=== PATIENT | male | born 1970 | race Caucasian/White ===

== ENCOUNTER 2017-03-02 14:32 | Inpatient (IN) | payer BC ==
[2017-03-02] MEDS ORDERED: NS 1,000 ML IV ONE (15:08)
[2017-03-02] MEDS ORDERED: ONDANSETRON 4 MG/2 ML VIAL IVP ONE (15:08)
[2017-03-02] MEDS ORDERED: HYDROmorphONE/DILAUDID 1 MG/ML SYR IVP ONE (15:08)
--- NOTE | 2017-03-02 15:11 | UCPHY ---
H & P Patient Type: New Chief Complaint Nursing Narrative: Pt. states vomiting with fever Monday noc last emesis Monday afternoon,diarrhea Monday am, and llq abd pain, also c/o garibay but resolving Time Seen by Provider: 03/02/17 14:57 HPI/ROS: CHIEF COMPLAINT: ABDOMINAL PAIN HISTORY OF PRESENT ILLNESS: Patient is a 46-year-old otherwise healthy man who comes to the Urgent Care complaining of left lower quadrant abdominal pain. He states that on Monday he began having some discomfort. Monday evening he vomited and had a fever of 101. Monday he had 1 or 2 episodes of diarrhea. The nausea, vomiting and diarrhea subsided but he continues to have mild to moderate left lower quadrant pain. It hurts him when he stepped down from the step and gokul his abdomen. He no longer has a fever. He states that he had something similar 2 years ago and his PCP told him to stay more hydrated. No testicular or back pain. He denies having any blood in his stool or vomit. REVIEW OF SYSTEMS: Constitutional: denies: chills, fever, recent illness, recent injury EENTM: denies: blurred vision, double vision, nose congestion Respiratory: denies: cough, shortness of breath Cardiac: denies: chest pain, irregular heart rate, lightheadedness, palpitations Gastrointestinal/Abdominal: See HPI Genitourinary: denies: dysuria, frequency, hematuria, pain Musculoskeletal: denies: joint pain, muscle pain Skin: denies: lesions, rash, jaundice, bruising Neurological: denies: headache, numbness, paresthesia, tingling, dizziness, weakness Hematologic/Lymphatic: denies: blood clots, easy bleeding, easy bruising Immunologic/allergic: denies: HIV/AIDS, transplant EXAM: GENERAL: Well-appearing, well-nourished and in no acute distress. HEAD: Atraumatic, normocephalic. EYES: Pupils equal round and reactive to light, extraocular movements intact, sclera anicteric, conjunctiva are normal. ENT: TMs normal, nares patent, oropharynx clear without exudates. Moist mucous membranes. NECK: Normal range of motion, supple without lymphadenopathy or JVD. LUNGS: Breath sounds clear to auscultation bilaterally and equal. No wheezes rales or rhonchi. HEART: Regular rate and rhythm without murmurs, rubs or gallops. ABDOMEN: Soft, nontender, normoactive bowel sounds. No guarding, no rebound. No masses appreciated. BACK: No CVA tenderness, no spinal tenderness, step-offs or deformities EXTREMITIES: Normal range of motion, no pitting or edema. No clubbing or cyanosis. NEUROLOGICAL: Cranial nerves II through XII grossly intact. Normal speech, normal gait. 5/5 strength, normal movement in all extremities, normal sensation PSYCH: Normal mood, normal affect. SKIN: Warm, dry, normal turgor, no visible rashes or lesions. Source: Patient Exam Limitations: No limitations - Medical/Surgical History Hx Asthma: No Hx Chronic Respiratory Disease: No Hx Diabetes: No Hx Cardiac Disease: No Hx Renal Disease: No Hx Cirrhosis: No Hx Alcoholism: No Hx HIV/AIDS: No Hx Splenectomy or Spleen Trauma: No Other PMH: Med hx-none. Surg-none - Family History Significant Family History: No pertinent family hx - Social History Smoking Status: Never smoked Alcohol Use: None Drug Use: None Constitutional: Initial Vital Signs Temperature (C) 37.1 C 03/02/17 14:46 Heart Rate 81 03/02/17 14:46 Respiratory Rate 16 03/02/17 14:46 Blood Pressure 131/88 H 03/02/17 14:46 O2 Sat (%) 97 03/02/17 14:46 O2 Delivery Mode Room Air Allergies/Adverse Reactions: No Known Allergies Allergy (Verified 03/02/17 14:45) Home Medications: Medication Instructions Recorded NK [No Known Home Meds] 03/02/17 Medical Decision Making - Diagnostics Imaging: Imaging Impressions Abdomen CT 03/02/17 15:08 Impression: Left descending colon localized perforation: diverticulitis versus colonic perforation of other etiology. Currently there is no colon obstruction. Results discussed with Dr. Constantino at 4:29 PM General information for patients regarding this examination can be found at [email or web address]. If you have questions or comments about this report, please contact me at (hospital) or [phone] (cell). PERSONALLY REVIEWED BY ME ED Course/Re-evaluation: Patient has pain in his left lower quadrant but no tenderness on exam. We will obtain lab work and CT scan. 4:50 p.m. we discussed the CT results. Start the patient on antibiotics and have paged surgery. 5:00 p.m. I spoke with Dr. Johan Jane who agrees with antibiotics and admission and will admit. Differential Diagnosis: Partial list of the Differential diagnosis considered include but were not limited to; diverticulitis, perforation, abscess and although unlikely based on the history and physical exam, I also considered constipation, gastritis, kidney stone, urinary tract infection. - Data Points Laboratory Results: Laboratory Results 03/02/17 15:05 03/02/17 15:05 03/02/17 03/02/17 03/02/17 15:25 15:05 15:05 WBC 14.61 10^3/uL H 10^3/uL (3.80-9.50) RBC 5.71 10^6/uL 10^6/uL (4.40-6.38) Hgb 17.3 g/dL g/dL (13.7-17.5) Hct 49.2 % % (40.0-51.0) MCV 86.2 fL fL (81.5-99.8) MCH 30.3 pg pg (27.9-34.1) MCHC 35.2 g/dL g/dL (32.4-36.7) RDW 12.7 % % (11.5-15.2) Plt Count 292 10^3/uL 10^3/uL (150-400) MPV 9.8 fL fL (8.7-11.7) Neut % (Auto) 78.1 % H % (39.3-74.2) Lymph % (Auto) 13.0 % L % (15.0-45.0) [place] % (Auto) 7.3 % % (4.5-13.0) Eos % (Auto) 0.8 % % (0.6-7.6) Baso % (Auto) 0.3 % % (0.3-1.7) Nucleat RBC Rel Count 0.0 % % (0.0-0.2) Absolute Neuts (auto) 11.43 10^3/uL H 10^3/uL (1.70-6.50) Absolute Lymphs (auto) 1.90 10^3/uL 10^3/uL (1.00-3.00) Absolute Monos (auto) 1.06 10^3/uL H 10^3/uL (0.30-0.80) Absolute Eos (auto) 0.11 10^3/uL 10^3/uL (0.03-0.40) Absolute Basos (auto) 0.04 10^3/uL 10^3/uL (0.02-0.10) Absolute Nucleated RBC 0.00 10^3/uL 10^3/uL (0-0.01) Immature Gran % 0.5 % % (0.0-1.1) Immature Gran # 0.07 10^3/uL 10^3/uL (0.00-0.10) Sodium 139 mEq/L mEq/L (134-144) Potassium 3.8 mEq/L mEq/L (3.5-5.2) Chloride 95 mEq/L L mEq/L (97-110) Carbon Dioxide 24 mEq/l mEq/l (22-31) Anion Gap 20 mEq/L H mEq/L (8-16) BUN 8 mg/dL mg/dL (7-23) Creatinine 0.9 mg/dL mg/dL (0.7-1.3) Estimated GFR > 60 Glucose 90 mg/dL mg/dL (70-100) Calcium 9.7 mg/dL mg/dL (8.5-10.4) Total Bilirubin 0.8 mg/dL mg/dL (0.1-1.4) Conjugated Bilirubin 0.2 mg/dL mg/dL (0.0-0.5) Unconjugated Bilirubin 0.6 mg/dL mg/dL (0.0-1.1) AST 17 IU/L IU/L (17-59) ALT 29 IU/L IU/L (21-72) Alkaline Phosphatase 103 IU/L IU/L (38-126) Total Protein 8.4 g/dL H g/dL (6.3-8.2) Albumin 4.6 g/dL g/dL (3.5-5.0) Lipase 52.0 IU/L IU/L (23-300) Urine Color YELLOW Urine Appearance CLEAR Urine pH 6.0 (5.0-7.5) Ur Specific [place] 1.020 (1.002-1.030) Urine Protein NEGATIVE (NEGATIVE) Urine Ketones TRACE H (NEGATIVE) Urine Blood 1+ H (NEGATIVE) Urine Nitrate NEGATIVE (NEGATIVE) Urine Bilirubin NEGATIVE (NEGATIVE) Urine Urobilinogen 0.2 EU EU (0.2-1.0) Ur Leukocyte Esterase NEGATIVE (NEGATIVE) Urine RBC 0-1 /hpf /hpf (0-3) Urine WBC 3-5 /hpf H /hpf (0-3) Ur Epithelial Cells NONE SEEN /lpf /lpf (NONE-1+) Urine Bacteria 1+ /hpf H /hpf (NONE SEEN) Urine Mucus 2+ /lpf H /lpf (NONE-1+) Ur Culture Indicated? NOT INDICATED (NI) Urine Glucose NEGATIVE (NEGATIVE) Medications Given: Discontinued Medications Hydromorphone HCl (Dilaudid) 0.5 mg IVP EDNOW ONE Stop: 03/02/17 15:09 Last Admin: 03/02/17 15:46 Dose: Not Given Sodium Chloride (Ns) 1,000 mls @ 0 mls/hr IV ONCE ONE PRN Reason: Wide Open Stop: 03/02/17 15:09 Last Admin: 03/02/17 15:15 Dose: 1,000 mls Ertapenem 1 gm/ Sodium (Chloride) 100 mls @ 200 mls/hr IV EDNOW ONE PRN Reason: Protocol Stop: 03/02/17 17:09 Last Admin: 03/02/17 15:45 Dose: 100 mls Ondansetron HCl (Zofran) 4 mg IVP EDNOW ONE Stop: 03/02/17 15:09 Last Admin: 03/02/17 15:20 Dose: 4 mg Departure - Departure Disposition: [facility] Clinical Impression: Perforation of colon Condition: Fair - PQRS PQRS Measurement: Not applicable
[2017-03-02 15:27] LABS: % IMMATURE GRANULYOCYTES 0.5 % (0.0-1.1); ABSOLUTE IMMATURE GRANULOCYTES 0.07 10^3/uL (0.00-0.10); ADD DIFF? NO; ADD MORPH? NO; ADD SCAN? NO; ATYPICAL LYMPHOCYTE FLAG 0 (0-99); FRAGMENT RBC FLAG 0 (0-99); HEMATOCRIT 49.2 % (40.0-51.0); HEMOGLOBIN 17.3 g/dL (13.7-17.5); LEFT SHIFT FLG 10 (0-99); LIPEMIA HEMOLYSIS FLAG 90 (0-99); MEAN CELL HEMOGLOBIN 30.3 pg (27.9-34.1); MEAN CELL HEMOGLOBIN CONCENTR. 35.2 g/dL (32.4-36.7); MEAN CELL VOLUME 86.2 fL (81.5-99.8); MEAN PLATELET VOLUME 9.8 fL (8.7-11.7); PLATELET CLUMPS FLAG 10 (0-99); PLATELET COUNT 292 10^3/uL (150-400); RED BLOOD CELL COUNT 5.71 10^6/uL (4.40-6.38); RED CELL DISTRIBUTION WIDTH 12.7 % (11.5-15.2)
[2017-03-02] MEDS ORDERED: IOPAMIDOL (ISOVUE-300) 100 ML BTL IV ONE (15:30)
[2017-03-02 15:32] LABS: COLOR YELLOW; LEUKOCYTE ESTERASE,URINE NEGATIVE (NEGATIVE); NITRITE,URINE NEGATIVE (NEGATIVE)
[2017-03-02 15:41] LABS: ALANINE AMINOTRANSFERASE 29 IU/L (21-72); ALBUMIN 4.6 g/dL (3.5-5.0); ALKALINE PHOSPHATASE 103 IU/L (38-126); ANION GAP 20 mEq/L (8-16); ASPARTATE AMINOTRANSFERASE 17 IU/L (17-59); BILIRUBIN,TOTAL 0.8 mg/dL (0.1-1.4); BILIRUBIN-CONJUGATED 0.2 mg/dL (0.0-0.5); BILIRUBIN-UNCONJUGATED 0.6 mg/dL (0.0-1.1); CALCIUM 9.7 mg/dL (8.5-10.4); CARBON DIOXIDE 24 mEq/l (22-31); CHLORIDE 95 mEq/L (97-110); CREATININE 0.9 mg/dL (0.7-1.3); GLOMERULAR FILTRATION RATE > 60; GLUCOSE 90 mg/dL (70-100); POTASSIUM 3.8 mEq/L (3.5-5.2); SODIUM 139 mEq/L (134-144); TOTAL PROTEIN 8.4 g/dL (6.3-8.2)
[2017-03-02 15:49] LABS: BACTERIA 1+ /hpf (NONE SEEN); MUCUS 2+ /lpf (NONE-1+); RBC,URINE 0-1 /hpf (0-3)
[2017-03-02] MEDS ORDERED: ERTAPENEM 1 GM VIAL ONE (16:40)
[2017-03-02] MEDS ORDERED: ERTAPENEM 1 GM in NS 100 ML IV ONE (16:40)
[2017-03-02] MEDS ORDERED: NS 100 ML BAG (MINI-BAG) IV ONE (16:41)
--- NOTE | 2017-03-02 20:20 | SOAPPROG ---
SOAP Progress Note Assessment/Plan: Assessment: 46 MALE WITH CONTAINED PERFORATION DESCENDING COLON UNCLEAR ETIOLOGY/ SIMILAR EPISODE 2 YRS AGO SOME CONSTIPATION RISKS AND OPTIONS FULLY DISCUSSED Plan:ADMIT FOR IV ABX/ IVS/ POSSIBLE COLECTOMY 03/02/17 20:18 Objective: Vital Signs Temp Pulse Resp BP Pulse Ox 36.8 C 69 18 107/70 97 03/02/17 19:13 03/02/17 19:13 03/02/17 19:13 03/02/17 19:13 03/02/17 19:13 03/01/17 03/02/17 03/03/17 05:59 05:59 05:59 Intake Total 1100 Balance 1100 ICD10 Worksheet Patient Problems: Problems Problem Status Onset Perforation of colon Acute
--- NOTE | 2017-03-02 21:16 | GHP ---
[f rep st] PREOP HISTORY AND PHYSICAL DATE OF ADMISSION: 03/02/2017 HISTORY OF PRESENT ILLNESS: A 46-year-old male, who has had abdominal pain for 4-5 days. He was ad mitted at this time with an area of colonic perforation in the descending colon, possibly secondary to diverticulitis. It is a contained perforation. He is relatively comfortable and afebrile, but w ith free air in the pericolonic tissue. He did have a fever earlier in the week. He has had some ch ronic problems with constipation. He had a similar episode 2 years ago, which resolved. PAST MEDICAL HISTORY: Includes no surgeries, hospitalizations or major medical problems. ALLERGIES: None. MEDICATIONS: None. REVIEW OF SYSTEMS: Reveals negative complete 10-point review of symptoms. PHYSICAL EXAMINATION: VITAL SIGNS: Reveal him presently to be afebrile. Blood pressure 130/84. HEAD AND NECK: Negative for icterus, adenopathy or oral lesions. CHEST: Clear. CARDIAC: Regular rhythm. ABDOMEN: Soft, flat. He is tender in the left lower quadrant just adjacent to his superi or iliac crest. GENITALIA: Normal. EXTREMITIES: Benign with full pulses. IMPRESSION: Localized perforation of diverticulitis. Cannot rule out malignancy. PLAN: IV antibiotics, rehydration. Consider colectomy. /[id number]/MODL
[2017-03-02] MEDS: D5W 1/2 NS W/ 20 KCl/L 1,000 ML IV SCH (21:53)
[2017-03-02] MEDS ORDERED: ACETAMINOPHEN 325 MG TAB PO PRN (23:25)
[2017-03-03] MEDS: D5W 1/2 NS W/ 20 KCl/L 1,000 ML IV SCH ×3 (04:35→21:22)
[2017-03-03 05:07] LABS: % IMMATURE GRANULYOCYTES 0.5 % (0.0-1.1); ABSOLUTE IMMATURE GRANULOCYTES 0.05 10^3/uL (0.00-0.10); ADD DIFF? NO; ADD MORPH? NO; ADD SCAN? NO; ATYPICAL LYMPHOCYTE FLAG 10 (0-99); FRAGMENT RBC FLAG 0 (0-99); HEMATOCRIT 43.3 % (40.0-51.0); HEMOGLOBIN 14.9 g/dL (13.7-17.5); LEFT SHIFT FLG 10 (0-99); LIPEMIA HEMOLYSIS FLAG 90 (0-99); MEAN CELL HEMOGLOBIN CONCENTR. 34.4 g/dL (32.4-36.7); MEAN CELL VOLUME 87.1 fL (81.5-99.8); PLATELET CLUMPS FLAG 10 (0-99); PLATELET COUNT 265 10^3/uL (150-400); RED BLOOD CELL COUNT 4.97 10^6/uL (4.40-6.38); RED CELL DISTRIBUTION WIDTH 12.7 % (11.5-15.2)
[2017-03-03] MEDS: ERTAPENEM 1 GM in NS 100 ML IV SCH (10:07)
--- NOTE | 2017-03-03 10:15 | SOAPPROG ---
SOAP Progress Note Assessment/Plan: Assessment: 46 MALE WITH CONTAINED PERFORATION DESCENDING COLON UNCLEAR ETIOLOGY/ SIMILAR EPISODE 2 YRS AGO SOME CONSTIPATION RISKS AND OPTIONS FULLY DISCUSSED Plan:ADMIT FOR IV ABX/ IVS/ POSSIBLE COLECTOMY 03/02/17 20:18 03/03/17 10:14 vs stable/ still photographer llq but improved/ afebrile/ risks and options fully discussed and he wishes to proceed with surgery Objective: Vital Signs Temp Pulse Resp BP Pulse Ox 36.6 C 54 L 18 110/77 97 03/03/17 08:05 03/03/17 08:05 03/03/17 08:05 03/03/17 08:05 03/03/17 08:05 Laboratory Results 03/03/17 04:23 ICD10 Worksheet Patient Problems: Problems Problem Status Onset Perforation of colon Acute
[2017-03-03] MEDS ORDERED: BUPIVACAINE 0.5% 30 ML SDV ONE (11:51)
[2017-03-03] MEDS ORDERED: HEPARIN 1000 UNIT/1 ML MDV ONE (11:52)
[2017-03-03] MEDS ORDERED: ceFAZolin 1 GM/5 ML SYR ONE (11:52)
[2017-03-03] MEDS ORDERED: fentaNYL 100 MCG/2 ML INJ ONE ×3 (14:29→20:00)
[2017-03-03] MEDS ORDERED: PROPOFOL 200 MG/20 ML VIAL ONE (14:29)
[2017-03-03] MEDS ORDERED: ROCURONIUM 50 MG/5 ML VIAL ONE ×3 (14:31→18:26)
[2017-03-03] MEDS ORDERED: DEXAMETHASONE 4 MG/ML VIAL ONE ×2 (14:32)
[2017-03-03] MEDS ORDERED: SCOPOLAMINE HYDROBROMIDE 1.5 MG PATCH TD ONE (16:22)
[2017-03-03] MEDS ORDERED: LIDOCAINE 2% 5 ML SDV ONE (17:05)
[2017-03-03] MEDS ORDERED: PROPOFOL/EMULSION 500 MG/50 ML BOTTLE IV ONE (17:05)
[2017-03-03] MEDS ORDERED: GLYCOPYRROLATE 0.2 MG/1 ML VIAL ONE ×2 (19:23→19:24)
--- NOTE | 2017-03-03 19:43 | POSTOPPROG ---
Post Op Note Date of Operation: 03/03/17 Surgeon: Johan Jane Oliver Filter Operator: Nayana Ospina MD, Gopal Benavides MS, AMELIA Ruiz MS Anesthesiologist: Jeffrey Garcia MD Anesthesia: GET(General Endotracheal) Pre-op Diagnosis: perforated colon Post-op Diagnosis: same Indication: epigastric pain Procedure: laparoscopic attempted, laparotomy with descending colon resection Findings: diverticulitis, perforated ulcer Inf/Abcess present in the surg proc area at time of surgery?: Yes Depth: Organ Space EBL: 50-100 Complications: none Drains: Hermes Sousa Specimen(s): descending colon to path
[2017-03-03] MEDS ORDERED: ONDANSETRON 4 MG/2 ML VIAL IVP PRN (19:48)
[2017-03-03] MEDS ORDERED: KETOROLAC 30 MG/1 ML SDV ONE (20:03)
[2017-03-03] MEDS ORDERED: HYDROmorphONE/DILAUDID 6 MG/30 ML PCA IV PRN (20:15)
[2017-03-03] MEDS ORDERED: NALOXONE HCL 0.4 MG/ML INJ IVP PRN (20:15)
[2017-03-03] MEDS ORDERED: HYDROmorphONE/DILAUDID 1 MG/ML SYR IVP PRN (21:00)
--- NOTE | 2017-03-03 21:09 | GOP ---
[f rep st] OPERATIVE REPORT DATE OF OPERATION: 03/03/2017 SURGEON: Johan Jane MD CO FOUNDER AND CHAIRMAN: Salvador Ospina MD. ANESTHESIOLOGIST: Mallory Mckinnon MD PREOPERATIVE DIAGNOSIS: Diverticular perforation. POSTOPERATIVE DIAGNOSIS: Diverticular perforation. PROCEDURE PERFORMED: 1. Laparoscopy, laparotomy with left partial colectomy. 2. Splenic flexure mobilization and drainage of diverticular abscess. FINDINGS: The patient was found to have a finite section of the diverticular inflammation with a lo calized abscess in the pericolonic area. DESCRIPTION OF PROCEDURE: The patient was taken to the operating room where he received satisfactor y general endotracheal anesthesia by Dr. Mckinnon. He was placed in supine position in low stirrups, prepped and draped in the usual sterile fashion. A periumbilical incision was made. A Veress need le inserted. Pneumoperitoneum was established. Trocar was introduced. Laparoscope introduced. Go od visualization was obtained. Two other trocars were placed under direct vision. The left colon w as mobilized and the descending colon and splenic flexure were mobilized along the lateral line of T oldt and around the splenic flexure. The sigmoid colon was also mobilized with the Harmonic Scalpel and then the area of inflammation was freed up from the abdominal wall. An abscess pocket was enco untered. This was suctioned clear and then irrigated clear. At that point, a midline abdominal inc ision was made and carried through to the linea alba. The colon was further mobilized and brought u p into the incision. It was divided distally with a ELLIE stapler below the level of diverticula and approximated the distal transverse colon with a ELLIE stapler. The specimen was removed and sent to P athology. The wound was copiously irrigated. The transverse colon was further mobilized and rodri t down into the pelvis where an end-to-side anastomosis was made in a 2-layer fashion using 3-0 silk interrupted sutures for the anterior and posterior layers, a running inner layer of 3-0 Vicryl, cre ating a good 2 fingerbreadth anastomosis. The wound again was irrigated. A 15 mm RAFAEL drain was brou ght out through a separate stab incision in the left lower quadrant and placed along the left gutter where the abscess was. The linea alba was then closed with a running #1 PDS suture. The skin was closed with a running 2-0 Monoderm Quill suture. The abdominal wound had been irrigated and an Carlo is wound protector was used for the procedure and then gloves and towels were changed for closure. He tolerated the procedure well, was taken to the recovery room in good condition. Blood loss was l ess than 10 cc. No complications. /[id number]/MODL
[2017-03-03] MEDS: KETOROLAC 15 MG/1 ML SDV IVP SCH (23:28)
[2017-03-04] MEDS: D5W 1/2 NS W/ 20 KCl/L 1,000 ML IV SCH ×3 (00:08→19:34)
[2017-03-04] MEDS: KETOROLAC 15 MG/1 ML SDV IVP SCH ×3 (05:18→18:14)
[2017-03-04 05:35] LABS: HEMATOCRIT 40.8 % (40.0-51.0); HEMOGLOBIN 14.1 g/dL (13.7-17.5)
[2017-03-04 05:54] LABS: ANION GAP 8 mEq/L (8-16); CALCIUM 8.8 mg/dL (8.5-10.4); CARBON DIOXIDE 24 mEq/l (22-31); CHLORIDE 103 mEq/L (97-110); CREATININE 0.7 mg/dL (0.7-1.3); GLOMERULAR FILTRATION RATE > 60; GLUCOSE 122 mg/dL (70-100); POTASSIUM 4.6 mEq/L (3.5-5.2); SODIUM 135 mEq/L (134-144)
[2017-03-04] MEDS: ERTAPENEM 1 GM in NS 100 ML IV SCH (10:30)
--- NOTE | 2017-03-04 10:55 | SOAPPROG ---
SOAP Progress Note Assessment/Plan: Assessment: s/p sigmoid colectomy ambulate cough/deep breath/IS sips and chips S: No nausea. No flatus O: Incision cdi BS hypoactive lungs ctab RRR Plan: 03/04/17 10:53 Objective: Vital Signs Temp Pulse Resp BP Pulse Ox 37.1 C 63 16 102/64 95 03/04/17 08:00 03/04/17 08:00 03/04/17 08:00 03/04/17 08:00 03/04/17 08:00 Laboratory Results 03/04/17 04:18 03/04/17 04:18 03/03/17 03/04/17 03/05/17 05:59 05:59 05:59 Intake Total 2300 Output Total 0 Balance 250 ICD10 Worksheet Patient Problems: Problems Problem Status Onset Perforation of colon Acute
[2017-03-04] MEDS: OXYCODONE/APAP 5/325 TAB PO PRN (19:26)
[2017-03-05] MEDS: KETOROLAC 15 MG/1 ML SDV IVP SCH ×5 (00:07→23:33)
[2017-03-05] MEDS: OXYCODONE/APAP 5/325 TAB PO PRN ×4 (00:12→14:11)
[2017-03-05] MEDS: D5W 1/2 NS W/ 20 KCl/L 1,000 ML IV SCH (03:32)
[2017-03-05] MEDS ORDERED: BISACODYL 10 MG SUPP PR PRN (08:06)
[2017-03-05] MEDS ORDERED: MAGNESIUM HYDROXIDE 30 ML UDCUP PO PRN (08:06)
[2017-03-05] MEDS ORDERED: POLYETHYLENE GLYCOL 3350 17 GM PKT PO PRN (08:06)
[2017-03-05] MEDS ORDERED: LACTULOSE 20 GM/30 ML UDCUP PO PRN (08:06)
--- NOTE | 2017-03-05 08:06 | SOAPPROG ---
SOAP Progress Note Assessment/Plan: Assessment: s/p sigmoid colectomy ambulate cough/deep breath/IS regular diet Likely home tomorrow S: Pain controlled. passing flatus O: Incision cdi BS present lungs ctab RRR Plan: 03/04/17 10:53 03/05/17 08:05 Objective: Vital Signs Temp Pulse Resp BP Pulse Ox 36.8 C 61 16 94/53 L 93 03/05/17 04:00 03/05/17 04:00 03/05/17 04:00 03/05/17 04:00 03/05/17 04:00 Laboratory Results 03/04/17 04:18 03/04/17 04:18 03/04/17 03/05/17 03/06/17 05:59 05:59 05:59 Intake Total 2300 400 Output Total 2050 1610 Balance 250 -1210 ICD10 Worksheet Patient Problems: Problems Problem Status Onset Perforation of colon Acute
[2017-03-05] MEDS: ERTAPENEM 1 GM in NS 100 ML IV SCH (09:30)
[2017-03-05] MEDS: SENNOSIDES/DOCUSATE SODIUM TAB PO SCH ×2 (11:32→21:37)
[2017-03-06] MEDS: KETOROLAC 15 MG/1 ML SDV IVP SCH (05:34)
[2017-03-06 07:20] VITALS: BP 117/73; PULSE 70; RESP 16; TEMP 98.2; O2SAT 95
[2017-03-06] MEDS: ERTAPENEM 1 GM in NS 100 ML IV SCH (08:41)
[2017-03-06] MEDS: SENNOSIDES/DOCUSATE SODIUM TAB PO SCH (08:43)
[2017-03-06] MEDS ORDERED: ONDANSETRON DISINTEGRATING 4 MG TAB PO ONE (11:30)
--- NOTE | 2017-03-08 21:35 | GDS ---
[f rep st] DISCHARGE SUMMARY REASON FOR ADMISSION: Diverticulitis. OTHER PERTINENT DIAGNOSES: Laparoscopic, laparotomy with left partial colectomy, drainage of divert icular abscess. HOSPITAL COURSE: The patient is a 46-year-old male, otherwise healthy, who came to the emergency ro with abdominal pain on 03/02/2017. CT scan demonstrated diverticulitis with microperforation. T he patient went to the operating room with Dr. Jane with the above-mentioned surgery. He tolerated it well. His hospital course was unremarkable, and patient regained bowel function fairly quickly. He was se nt home with pain medicine, Reubens, #30, and Augmentin 875 mg twice daily for 10 days. Pathology from the surgery demonstrated diverticulitis. There were 2 sections of colon removed, the first 8 cm in length, and a second 14 cm in length. Scattered diverticula noted. FOLLOWUP: Patient was instructed to follow up in our office in a few days' time for removal of Ford son-Sousa drain. /[id number]/MODL
== END 2017-03-06 13:06 | disposition home or self-care (01) | DRG 330 ==
LOC: CED 14:32 → CEDHOLD 17:04 → F3E 18:54 → OBSVTOIN 21:11
PROVIDERS: ADMIT Surgery; ATTEND Surgery
PROC: 0DBL0ZZ Excision of Transverse Colon, Open Approach (ICD-10-PCS; principal; 2017-03-03 20:15)
PROC: 0D9N4ZZ Drainage of Sigmoid Colon, Percutaneous Endoscopic Approach (ICD-10-PCS; principal; 2017-03-03 20:15)
DX: K57.20 Diverticulitis of large intestine with perforation and abscess without bleeding (principal)
CPT/HCPCS: 74177-PO; 80053-PO; 81003-PO; 81015-PO; 82248-PO; 83690-PO; 85025-PO; 96361-PO; 96365-PO; 96375-PO; 99205-PO; G0463-PO; J1100; J1170; J1335; J1885; J2405; J2704; J3010; Q9967

== ENCOUNTER 2017-03-07 21:19 | Emergency (ER) | payer BC ==
[2017-03-07 21:29] VITALS: RESP 16; O2SAT 95
[2017-03-07] MEDS ORDERED: ONDANSETRON 4 MG/2 ML VIAL IVP ONE (21:46)
[2017-03-07] MEDS ORDERED: NS 1,000 ML IV ONE (21:46)
--- NOTE | 2017-03-07 21:46 | EDPHY ---
H & P Stated Complaint: nausea HPI/ROS: HPI CHIEF COMPLAINT: Nausea, recent colon surgery HISTORY OF PRESENT ILLNESS: This patient 46-year-old male otherwise healthy no significant medical history however just had colon resection due to acute diverticulitis with perforation by Dr. Jane. He had surgery on 03/03, state multiple days in the hospital discharge yesterday. Since going home he has had nausea. No fever. Denies abdominal pain. Having diarrheal bowel movements. He is on Augmentin. He denies chest pain or shortness of breath. His main complaint tonight is ongoing nausea. He also tells me that he had some frothy urine. Denies dysuria. Denies discoloration of his urine or fecal metal in his urine. Past Medical History: Acute diverticulitis Past Surgical History: Recent colon surgery Social History: Denies daily use drugs alcohol tobacco products Family History: Noncontributory ROS REVIEW OF SYSTEMS: A comprehensive 10 point review of systems is otherwise negative aside from elements mentioned in the history of present illness. Exam Constitutional appears well nontoxic, triage nursing summary reviewed, vital signs reviewed, awake/alert. Eyes normal conjunctivae and sclera, EOMI, PERRLA. HENT normal inspection, atraumatic, moist mucus membranes, no epistaxis, neck supple/ no meningismus, no raccoon eyes. Respiratory clear to auscultation bilaterally, normal breath sounds, no respiratory distress, no wheezing. Cardiovascular rate normal, regular rhythm, no murmur, no edema, distal pulses normal. Gastrointestinal mild tender palpation around the incision vertical midline, and RAFAEL drain, otherwise no peritoneal signs, no rebound, no guarding, normal bowel sounds, no distension, no pulsatile mass. Genitourinary no CVA tenderness. Musculoskeletal no midline vertebral tenderness, full range of motion, no calf swelling, no tenderness of extremities, no meningismus, good pulses, neurovascularly intact. Skin midline abdominal incision Steri-Strips in place, clean dry, intact, left lower quadrant abdominal drain, no signs of infection pink, warm, & dry, no rash , skin atraumatic. Neurologic awake, alert and oriented x 3, AAOx3, moves all 4 extremities equally, motor intact, sensory intact, CN II-XII intact, normal cerebellar, normal vision, normal speech. Psychiatric normal mood/affect. Heme/Lymph/Immune no lymphadenopathy. Differential Diagnosis: Includes but is not limited to in a particular order electrolyte disturbance, dehydration, nausea from recent surgery, doubt intra- abdominal abscess, UTI, Medical Decision Making: Plan for patient IV establishment blood work, check urinalysis IV hydration IV Zofran for nausea. Re-evaluation. Re-evaluation: Source: Patient - Personal History Current Tetanus/Diphtheria Vaccine: Yes Current Tetanus Diphtheria and Acellular Pertussis (TDAP): Yes - Medical/Surgical History Hx Asthma: No Hx Chronic Respiratory Disease: No Hx Diabetes: No Hx Cardiac Disease: No Hx Renal Disease: No Hx Cirrhosis: No Hx Alcoholism: No Hx HIV/AIDS: No Hx Splenectomy or Spleen Trauma: No Other PMH: Med hx-none. Surg-colon resection 02/2017 - Social History Smoking Status: Never smoked Constitutional: Initial Vital Signs Temperature (C) 36.6 C 03/07/17 21:25 Heart Rate 79 03/07/17 21:25 Respiratory Rate 16 03/07/17 21:25 Blood Pressure 146/99 H 03/07/17 21:25 O2 Sat (%) 95 03/07/17 21:25 O2 Delivery Mode Room Air Allergies/Adverse Reactions: No Known Allergies Allergy (Verified 03/07/17 21:25) Home Medications: Medication Instructions Recorded Acetaminophen [Tylenol 325mg (*)] 650 mg PO Q4 PRN #0 tab 03/06/17 Amoxicillin/Clavulanate Pot 875 mg PO BID #20 tab 03/06/17 [Augmentin 875 MG TAB (*)] Ondansetron HCl [Zofran] 4 mg PO Q4-6PRN PRN #10 tablet 03/07/17 Medical Decision Making - Data Points Laboratory Results: Laboratory Results 03/07/17 22:15 03/07/17 22:15 03/07/17 03/07/17 03/07/17 22:15 22:15 22:15 WBC 9.87 10^3/uL H 10^3/uL (3.80-9.50) RBC 5.11 10^6/uL 10^6/uL (4.40-6.38) Hgb 15.1 g/dL g/dL (13.7-17.5) Hct 43.7 % % (40.0-51.0) MCV 85.5 fL fL (81.5-99.8) MCH 29.5 pg pg (27.9-34.1) MCHC 34.6 g/dL g/dL (32.4-36.7) RDW 12.4 % % (11.5-15.2) Plt Count 400 10^3/uL 10^3/uL (150-400) MPV 9.0 fL fL (8.7-11.7) Neut % (Auto) Not Reported Lymph % (Auto) Not Reported [place] % (Auto) Not Reported Eos % (Auto) Not Reported Baso % (Auto) Not Reported Nucleat RBC Rel Count 0.0 % % (0.0-0.2) Absolute Neuts (auto) Not Reported Absolute Lymphs (auto) Not Reported Absolute Monos (auto) Not Reported Absolute Eos (auto) Not Reported Absolute Basos (auto) Not Reported Absolute Nucleated RBC 0.00 10^3/uL 10^3/uL (0-0.01) Immature Gran % Not Reported Seg Neutrophils % 57 % % Band Neutrophils % 1 % % Lymphocytes % 27 % % Monocytes % 7 % % Eosinophils % 7 % % Basophils % 1 % % Immature Gran # Not Reported Absolute Seg Neuts 5.63 10^/uL 10^/uL (1.70-6.50) Absolute Band Neuts 0.10 10^3/uL 10^3/uL (0.00-0.70) Absolute Lymphocytes 2.66 10^3/uL 10^3/uL (1.00-3.00) Absolute Monocytes 0.69 10^3/uL 10^3/uL (0.30-0.80) Absolute Eosinophils 0.69 10^3/uL H 10^3/uL (0.03-0.40) Absolute Basophils 0.10 10^3/uL 10^3/uL (0.02-0.10) Atypical Lymphocytes 2+ H Platelet Estimate ADEQUATE (ADEQ) Smear Review By Pending PT 13.4 SEC SEC (12.0-15.0) INR 1.03 (0.83-1.16) APTT 28.1 SEC SEC (23.0-38.0) Sodium 137 mEq/L mEq/L (134-144) Potassium 3.8 mEq/L mEq/L (3.5-5.2) Chloride 101 mEq/L mEq/L (97-110) Carbon Dioxide 26 mEq/l mEq/l (22-31) Anion Gap 10 mEq/L mEq/L (8-16) BUN 8 mg/dL mg/dL (7-23) Creatinine 0.8 mg/dL mg/dL (0.7-1.3) Estimated GFR > 60 Glucose 100 mg/dL mg/dL (70-100) Calcium 9.2 mg/dL mg/dL (8.5-10.4) Total Bilirubin 0.7 mg/dL mg/dL (0.1-1.4) Conjugated Bilirubin 0.4 mg/dL mg/dL (0.0-0.5) Unconjugated Bilirubin 0.3 mg/dL mg/dL (0.0-1.1) AST 44 IU/L IU/L (17-59) ALT 75 IU/L H IU/L (21-72) Alkaline Phosphatase 130 IU/L H IU/L (38-126) Total Protein 6.5 g/dL g/dL (6.3-8.2) Albumin 3.7 g/dL g/dL (3.5-5.0) Lipase 77.0 IU/L IU/L (23-300) Urine Color Urine Appearance Urine pH Ur Specific [place] Urine Protein Urine Ketones Urine Blood Urine Nitrate Urine Bilirubin Urine Urobilinogen Ur Leukocyte Esterase Ur Culture Indicated? Urine Glucose 03/07/17 22:00 WBC RBC Hgb Hct MCV MCH MCHC RDW Plt Count MPV Neut % (Auto) Lymph % (Auto) [place] % (Auto) Eos % (Auto) Baso % (Auto) Nucleat RBC Rel Count Absolute Neuts (auto) Absolute Lymphs (auto) Absolute Monos (auto) Absolute Eos (auto) Absolute Basos (auto) Absolute Nucleated RBC Immature Gran % Seg Neutrophils % Band Neutrophils % Lymphocytes % Monocytes % Eosinophils % Basophils % Immature Gran # Absolute Seg Neuts Absolute Band Neuts Absolute Lymphocytes Absolute Monocytes Absolute Eosinophils Absolute Basophils Atypical Lymphocytes Platelet Estimate Smear Review By PT INR APTT Sodium Potassium Chloride Carbon Dioxide Anion Gap BUN Creatinine Estimated GFR Glucose Calcium Total Bilirubin Conjugated Bilirubin Unconjugated Bilirubin AST ALT Alkaline Phosphatase Total Protein Albumin Lipase Urine Color PALE YELLOW Urine Appearance CLEAR Urine pH 6.0 (5.0-7.5) Ur Specific [place] 1.006 (1.002-1.030) Urine Protein NEGATIVE (NEGATIVE) Urine Ketones NEGATIVE (NEGATIVE) Urine Blood NEGATIVE (NEGATIVE) Urine Nitrate NEGATIVE (NEGATIVE) Urine Bilirubin NEGATIVE (NEGATIVE) Urine Urobilinogen NEGATIVE EU EU (0.2-1.0) Ur Leukocyte Esterase NEGATIVE (NEGATIVE) Ur Culture Indicated? NOT INDICATED (NI) Urine Glucose NEGATIVE (NEGATIVE) Medications Given: Discontinued Medications Sodium Chloride (Ns) 1,000 mls @ 0 mls/hr IV ONCE ONE PRN Reason: Wide Open Stop: 03/07/17 21:47 Last Admin: 03/07/17 22:28 Dose: 1,000 mls Ondansetron HCl (Zofran) 4 mg IVP EDNOW ONE Stop: 03/07/17 21:47 Last Admin: 03/07/17 22:28 Dose: 4 mg Departure - Departure Disposition: Home, Routine, Self-Care Clinical Impression: Nausea Condition: Good Instructions: Acute Nausea and Vomiting (ED) Additional Instructions: 1. Return emergency room if you have any worsening symptoms questions or concerns this includes worsening abdominal pain, fever, vomiting Referrals: Fredi Cook DO [Primary Care Provider] - As per Instructions Prescriptions: Ondansetron HCl [Zofran] 4 mg PO Q4-6PRN PRN #10 tablet PRN Reason: Nausea/Vomiting, Use 1st
[2017-03-07 22:22] LABS: COLOR PALE YELLOW; LEUKOCYTE ESTERASE,URINE NEGATIVE (NEGATIVE); NITRITE,URINE NEGATIVE (NEGATIVE)
[2017-03-07 22:27] LABS: ADD MORPH? NO; ADD SCAN? YES; FRAGMENT RBC FLAG 0 (0-99); HEMATOCRIT 43.7 % (40.0-51.0); HEMOGLOBIN 15.1 g/dL (13.7-17.5); LEFT SHIFT FLG 20 (0-99); LIPEMIA HEMOLYSIS FLAG 90 (0-99); MEAN CELL HEMOGLOBIN 29.5 pg (27.9-34.1); MEAN CELL HEMOGLOBIN CONCENTR. 34.6 g/dL (32.4-36.7); MEAN CELL VOLUME 85.5 fL (81.5-99.8); PLATELET CLUMPS FLAG 10 (0-99); PLATELET COUNT 400 10^3/uL (150-400); RED BLOOD CELL COUNT 5.11 10^6/uL (4.40-6.38); RED CELL DISTRIBUTION WIDTH 12.4 % (11.5-15.2)
[2017-03-07 22:28] LABS: ATYPICAL LYMPHOCYTE FLAG 110 (0-99)
[2017-03-07 22:33] LABS: APTT 28.1 SEC (23.0-38.0); INR 1.03 (0.83-1.16); PROTIME(PATIENT) 13.4 SEC (12.0-15.0)
[2017-03-07 22:41] LABS: ALANINE AMINOTRANSFERASE 75 IU/L (21-72); ALBUMIN 3.7 g/dL (3.5-5.0); ALKALINE PHOSPHATASE 130 IU/L (38-126); ANION GAP 10 mEq/L (8-16); ASPARTATE AMINOTRANSFERASE 44 IU/L (17-59); BILIRUBIN,TOTAL 0.7 mg/dL (0.1-1.4); BILIRUBIN-CONJUGATED 0.4 mg/dL (0.0-0.5); BILIRUBIN-UNCONJUGATED 0.3 mg/dL (0.0-1.1); CALCIUM 9.2 mg/dL (8.5-10.4); CARBON DIOXIDE 26 mEq/l (22-31); CHLORIDE 101 mEq/L (97-110); CREATININE 0.8 mg/dL (0.7-1.3); GLOMERULAR FILTRATION RATE > 60; GLUCOSE 100 mg/dL (70-100); POTASSIUM 3.8 mEq/L (3.5-5.2); SODIUM 137 mEq/L (134-144); TOTAL PROTEIN 6.5 g/dL (6.3-8.2)
[2017-03-07 22:53] LABS: ADD DIFF? YES; SCAN POSITIVE
[2017-03-07 22:58] LABS: PLATELET ESTIMATE ADEQUATE (ADEQ)
[2017-03-07] MEDS ORDERED: ONDANSETRON 4MG PREPACK#2 BTL TAKEHOME ONE (23:19)
[2017-03-07 23:59] VITALS: BP 129/88; PULSE 87; TEMP 98.4
== END 2017-03-07 23:55 | disposition home or self-care (01) ==
DX: R11.0 Nausea (principal)
CPT/HCPCS: 96374; J2405